=== PATIENT | male | born 1985 | race Caucasian/White ===

== ENCOUNTER 2016-05-12 12:35 | Outpatient (RCR) | payer MEDICAID ==
[2016-05-08] MEDS: DAPTOMYCIN IV SCH (13:15)
[2016-05-08] MEDS: NORMAL SALINE IV SCH (13:15)
[2016-05-08] MEDS: CATHETER FLUSH 10 ML SYR IV PRN ×2 (13:50→14:20)
[2016-05-08 14:32] VITALS: BP 105/70
[2016-05-09] MEDS: CATHETER FLUSH 10 ML SYR IV PRN ×2 (13:28→14:01)
[2016-05-09] MEDS: DAPTOMYCIN IV SCH (13:30)
[2016-05-09] MEDS: NORMAL SALINE IV SCH (13:30)
[2016-05-09 14:05] VITALS: BP 107/74
[2016-05-10 13:27] VITALS: BP 112/56
[2016-05-10] MEDS: DAPTOMYCIN IV SCH (13:33)
[2016-05-10] MEDS: NORMAL SALINE IV SCH (13:33)
[2016-05-10] MEDS: CATHETER FLUSH 10 ML SYR IV PRN (13:33)
[2016-05-11 12:55] VITALS: BP 112/59
[2016-05-11] MEDS: NORMAL SALINE IV SCH (13:13)
[2016-05-11] MEDS: DAPTOMYCIN IV SCH (13:13)
[2016-05-11 13:16] VITALS: BP 112/59
[~2016-05-12] VITALS: Ht 172.7 cm; Wt 68.6 kg
[~2016-05-12 12:35] MED LIST: ACYC-109 PO; BISM262T13 PO; BUTA-234 PO; BUTA1TAB55 PO; CEPH-38 PO; CEPH500C PO; CHLO500T4 PO; CYCL10TA9 PO; DCS100C PO; DICL75TA2 PO; DOXE50CA3 PO; EPIN0.3P3 IM; HC2.5C30 TOP; HYDR-2890 PO; HYDR-3720 PO; HYDR1TAB PO; IBP800T PO; INSU100I14 SQ; INSU100I16 SQ; INSU100V13 IJ; INSU100V16 SC; INSU100V6 SQ; KETO10TA PO; LEVE1U SQ; METF500T4 PO; METR500T PO; MTF500T PO; NAPR-243 PO; NAPR-248 PO; NAPR550T PO; OMEP-10 PO; ONDAN4ODT PO; OXYC-272 PO; PNT40TEC PO; PRD20T PO; PRM25T PO; SULF1TAB35 PO; SULF1TAB38 PO; SUMA100T2 PO; TAMS0.4C98 PO; TETR500C2 PO
[2016-05-12] MEDS: NORMAL SALINE IV SCH (13:25)
[2016-05-12] MEDS: CATHETER FLUSH 10 ML SYR IV PRN ×2 (13:25→13:55)
[2016-05-12] MEDS: DAPTOMYCIN IV SCH (13:25)
[2016-05-12 13:27] LABS: BASOPHILS # (AUTO) 0.1 10^3/uL (0.0-0.1); BASOPHILS % (AUTO) 1 % (0-10); EOSINOPHILS # (AUTO) 0.1 10^3/uL (0.0-0.3); EOSINOPHILS % (AUTO) 1 % (0-10); LYMPHOCYTES # (AUTO) 1.9 X 10^3 (1.0-4.0); LYMPHOCYTES % (AUTO) 26 % (12-44); MEAN CORPUSCULAR HEMOGLOBIN 30 PG (25-34); MEAN CORPUSCULAR HGB CONC 31 G/DL (32-36); MEAN CORPUSCULAR VOLUME 97 FL (80-99); MEAN PLATELET VOLUME 8.5 FL (7.4-10.4); MONOCYTES # (AUTO) 0.7 X 10^3 (0.0-1.0); MONOCYTES % (AUTO) 10 % (0-12); NEUTROPHILS # (AUTO) 4.6 X 10^3 (1.8-7.8); NEUTROPHILS % (AUTO) 63 % (42-75); PLATELET COUNT 846 10^3/uL (130-400); RED BLOOD COUNT 3.17 10^6/uL (4.35-5.85); RED CELL DISTRIBUTION WIDTH 14.2 % (10.0-14.5); WHITE BLOOD COUNT 7.2 10^3/uL (4.3-11.0)
[2016-05-12 13:47] LABS: ALANINE AMINOTRANSFERASE 29 U/L (0-55); ALBUMIN 3.5 G/DL (3.2-4.5); ANION GAP 6 MMOL/L (5-14); ASPARTATE AMINO TRANSFERASE 30 U/L (5-34); BILIRUBIN,TOTAL 0.3 MG/DL (0.1-1.0); BLOOD UREA NITROGEN 6 MG/DL (7-18); BUN/CREATININE RATIO 8; CALCIUM 9.7 MG/DL (8.5-10.1); CARBON DIOXIDE 30 MMOL/L (21-32); CHLORIDE 100 MMOL/L (98-107); CREATINE KINASE 151 U/L (30-200); CREATININE SERUM 0.79 MG/DL (0.60-1.30); ERYTHROCYTE SEDIMENTATION RATE 119 MM/HR (0-15); GFR ESTIMATED > 60; GLUCOSE 197 MG/DL (70-105); POTASSIUM 4.6 MMOL/L (3.6-5.0); SODIUM 136 MMOL/L (135-145); TOTAL PROTEIN 6.8 G/DL (6.4-8.2)
[2016-05-12 14:05] VITALS: BP 117/76
[2016-05-23] MEDS ORDERED: HYDR-3816 PO (03:37)
== END 2016-08-06 | disposition home or self-care (01) ==
LOC: SDC 12:35
PROVIDERS: ATTEND Internal Medicine Infectious Disease
DX: S21.30 Unspecified open wound of front wall of thorax with penetration into thoracic cavity (principal); B95.8 Unspecified staphylococcus as the cause of diseases classified elsewhere; X93.XXXD Assault by handgun discharge, subsequent encounter; Y99.8 Other external cause status
CPT/HCPCS: 36415; 80053; 82550; 85025; 85652; 96365

== ENCOUNTER 2017-05-08 12:41 | Emergency (ER) | payer SELFPAY ==
[~2017-05-08] VITALS: Ht 172.7 cm; Wt 59.0 kg
[~2017-05-08 12:41] MED LIST changes: +HYDR-3816 PO
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
[2017-05-08 14:10] LABS: BASOPHILS % (AUTO) 0 % (0-10); EOSINOPHILS # (AUTO) 0.2 10^3/uL (0.0-0.3); EOSINOPHILS % (AUTO) 2 % (0-10); LYMPHOCYTES # (AUTO) 3.2 X 10^3 (1.0-4.0); LYMPHOCYTES % (AUTO) 39 % (12-44); MEAN CORPUSCULAR HEMOGLOBIN 32 PG (25-34); MEAN CORPUSCULAR HGB CONC 35 G/DL (32-36); MEAN CORPUSCULAR VOLUME 92 FL (80-99); MEAN PLATELET VOLUME 9.6 FL (7.4-10.4); MONOCYTES # (AUTO) 0.5 X 10^3 (0.0-1.0); MONOCYTES % (AUTO) 6 % (0-12); NEUTROPHILS # (AUTO) 4.3 X 10^3 (1.8-7.8); NEUTROPHILS % (AUTO) 53 % (42-75); PLATELET COUNT 238 10^3/uL (130-400); RED BLOOD COUNT 4.77 10^6/uL (4.35-5.85); RED CELL DISTRIBUTION WIDTH 12.2 % (10.0-14.5); WHITE BLOOD COUNT 8.2 10^3/uL (4.3-11.0)
[2017-05-08] MEDS ORDERED: NS 100 ML (IVPB) BAG IV ONE (14:15)
[2017-05-08] MEDS ORDERED: IOHEXOL 350 MG/ML 100 ML (OMNIPAQUE 350) VIAL IV ONE (14:15)
[2017-05-08 14:32] LABS: ALANINE AMINOTRANSFERASE 25 U/L (0-55); ALBUMIN 4.1 GM/DL (3.2-4.5); ANION GAP 9 MMOL/L (5-14); ASPARTATE AMINO TRANSFERASE 20 U/L (5-34); BILIRUBIN,TOTAL 0.4 MG/DL (0.1-1.0); BLOOD UREA NITROGEN 10 MG/DL (7-18); BUN/CREATININE RATIO 12; CALCIUM 8.9 MG/DL (8.5-10.1); CARBON DIOXIDE 24 MMOL/L (21-32); CHLORIDE 106 MMOL/L (98-107); CREATININE SERUM 0.84 MG/DL (0.60-1.30); GFR ESTIMATED > 60; GLUCOSE 135 MG/DL (70-105); LIPASE 29 U/L (8-78); SODIUM 139 MMOL/L (135-145); TOTAL PROTEIN 6.9 GM/DL (6.4-8.2)
--- NOTE | 2017-05-08 15:26 | Diagnostic Imaging Report ---
PROCEDURE: CT chest and abdomen with contrast. TECHNIQUE: Multiple contiguous axial images were obtained through the chest and abdomen after the administration of intravenous contrast. DATE: May 08, 2017. INDICATION: 31-year-old male, painful lump in the region of the left axilla for one year. Right upper quadrant abdominal pain. COMPARISON: CT chest and abdomen with contrast May 23, 2016. FINDINGS: There is mild dependent atelectasis. There is no additional focal airspace consolidation. There is no identified pulmonary nodule. There is no pneumothorax. There is no pleural effusion. The more central airways are patent. There is no identified pulmonary embolus. The main pulmonary artery is normal in caliber. The heart is not enlarged. There is no pericardial effusion. There is no identified mediastinal, hilar, or axillary lymph node which specifically meets CT size criteria for adenopathy. In the left axilla, there is a low-attenuation mass not entirely included in the [id number] which measures 3.1 x 1.8 cm in axial dimension and at least 3.3 cm in craniocaudal extent. This does extend to the skin surface. This is a new finding since comparison CT chest of May 23, 2016. There is incidental note of direct origin of the left vertebral artery off the aortic arch. The liver is normal in size and contour. There is a low-attenuation lesion in the dome of the liver on axial image 40 which measures 9 mm in size. Internal attenuation is measured at 9 Hounsfield units. This is significantly decreased in size since comparison CT of May 23, 2016. The additional previously noted low-attenuation lesion in the upper aspect of the right lobe of the liver on prior axial image 45 is also significantly decreased in size and currently measures 2.8 x 1.0 cm in axial extent. This previously measured approximately 7.7 x 3.9 cm in size. The outer liver contours are not grossly nodular. The main, right, and left portal veins are patent. The gallbladder is unremarkable. There is no intrahepatic or extrahepatic bile duct dilation. The main pancreatic duct is not abnormally dilated. The pancreatic parenchyma is unremarkable. There is an accessory splenule on axial image 54. The spleen is normal in size. The adrenal glands are unremarkable. There is a 3 mm nonobstructing right renal stone on axial image 60. The visualized portions of the urinary collecting systems are not distended. The visualized portions of the intestinal tract are not distended. There is no free intraperitoneal air. There is no identified drainable fluid collection within the abdomen. There is no identified free fluid. There are mildly prominent left retroperitoneal lymph nodes which do appear to have fatty leila. One of the largest is on axial image 66 measuring 10 mm in short axis. This is unchanged since comparison exam. There are somewhat prominent atherosclerotic changes for patient age. There is no identified acute bony abnormality. There are chronic appearing right rib deformities. IMPRESSION: 1. New low-attenuation mass in the subcutaneous tissues in the region of the left axilla anterior to the left proximal humerus abutting the skin surface, incompletely imaged in entire extent measuring at least 3.1 x 1.8 x 3.3 cm in size. This does extend to the skin surface. Recommend correlation with dermatologic exam. This is nonspecific in appearance. Benign and malignant neoplasms and abscess would be included in the differential diagnosis. This is new since May 23, 2016. Correlation clinically and biopsy as needed recommended. 2. Low attenuation lesions in the dome of the liver which are decreased in size since May 23, 2016. The interval decrease in size is not typical for hepatic cysts. This could relate to interval decrease in size of prior fluid collections. Interval decreased size of hepatic abscesses or other cystic liver mass would be considered in the differential diagnosis. Cystic malignancy is considered less likely, particularly if there are no interval treatment-related changes. Correlation with history recommended. Dictated by: Dictated on workstation # [id number]
[2017-05-08] MEDS ORDERED: HYDR-757 PO (15:33)
[2017-05-08 15:39] VITALS: BP 110/70
== END 2017-05-08 15:39 | disposition home or self-care (01) ==
LOC: EDUNIT# 12:41 → ER 12:44
DX: R59.0 Localized enlarged lymph nodes (principal); E11.9 Type 2 diabetes mellitus without complications; F17.210 Nicotine dependence, cigarettes, uncomplicated; Z87.442 Personal history of urinary calculi; Z98.52 Vasectomy status; Z87.828 Personal history of other (healed) physical injury and trauma
CPT/HCPCS: 36415; 71260; 74160; 80053; 83690; 85025

== ENCOUNTER 2017-06-19 13:02 | Emergency (ER) | payer SELFPAY ==
[~2017-06-19 13:02] MED LIST changes: +HYDR-757 PO
--- OUTSIDE RECORDS SUMMARY | 2017-06-19 13:09 | XMS REPORT ---
Author Author ANTOINETTE KINCAID Organization [employer] Address Unknown Phone Unavailable Care Team Providers Care Cardroom Manager Name Role Phone ANTOINETTE KINCAID CP Unavailable Allergies No Known Allergies Problems Problem Type Condition Code Onset Dates Condition Status Problem Impulse control disorder, unspecified 312.30 Active Problem Diarrhea 787.91 Active Problem Nausea alone 787.02 Active Problem Diabetes type 2, uncontrolled E11.65 Active Problem 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 Problem Severe episode of recurrent major depressive disorder, without psychotic features F33.2 Active Problem Unspecified concussion 850.9 Active Problem Acute pharyngitis 462 Active Problem Other specified disease of hair and hair follicles 704.8 Active Problem Other specified sites of sprains and strains 848.8 Active Problem Other specified contraceptive management V25.8 Active Problem Other malaise and fatigue 780.79 Active Problem Need for prophylactic vaccination and inoculation, Influenza V04.81 Active Problem Headache 784.0 Active Problem Migraine, unspecified without mention of intractable migraine without mention of status migrainosus 346.90 Active Problem Idiopathic urticaria 708.1 Active Problem Influenza with other respiratory manifestations 487.1 Active Problem Diabetes mellitus without mention of complication, type II or unspecified type, uncontrolled 250.02 Active Problem Cough 786.2 Active Problem Counseling for marital and partner problems, unspecified V61.10 Active Medications No Known Medications Results No Known Results Summary Purpose [employer] Submission
--- OUTSIDE RECORDS SUMMARY | 2017-06-19 13:09 | XMS REPORT ---
Author MIGUELITO Pandey [facility] [employer] Address Unknown Phone Unavailable Care Team Providers Care Stummel Selector Name Role Phone MIGUELITO ZULETA CP Unavailable Allergies, Adverse Reactions, Alerts Substance Reaction Event Type Penicillin V Potassium Info Not Available Drug Allergy Chantix suicidal ideations Drug Allergy Problems Problem Type Condition Code Onset Dates Condition Status Problem Counseling for marital and partner problems, unspecified V61.10 Active Problem Nausea alone 787.02 Active Problem Impulse control disorder, unspecified 312.30 Active Problem 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 Assessment PTSD (post-traumatic stress disorder) F43.10 Active Problem Other specified disease of hair and hair follicles 704.8 Active Assessment Major depression F32.9 Active Assessment Unspecified mood [affective] disorder F39 Active Problem Diabetes type 2, uncontrolled E11.65 Active Problem Acute pharyngitis 462 Active Problem Diarrhea 787.91 Active Problem Other specified sites of sprains and strains 848.8 Active Problem Unspecified concussion 850.9 Active Problem Headache 784.0 Active Problem Other specified contraceptive management V25.8 Active Assessment ADHD (attention deficit hyperactivity disorder), inattentive type F90.0 Active Problem Need for prophylactic vaccination and inoculation, Influenza V04.81 Active Problem Cough 786.2 Active Problem Migraine, unspecified without mention of intractable migraine without mention of status migrainosus 346.90 Active Problem Other malaise and fatigue 780.79 Active Problem Idiopathic urticaria 708.1 Active Problem Influenza with other respiratory manifestations 487.1 Active Problem Diabetes mellitus without mention of complication, type II or unspecified type, uncontrolled 250.02 Active Medications Medication Code System Code Instructions Start Date End Date Status Dosage Klonopin [facility] [address]-68 1 MG Orally as needed once a day Jun 08, 2015 1 tablet NovoLog Flexpen [facility] [address]-10 100 unit/mL Aug 14, 2014 inject 20 Units by Subcutaneous route before meals 3 times per day metformin NDC 0 500 mg Aug 14, 2014 take 1 tablet by Oral route 2 times per day with morning and evening meals for diabetes Lantus AlainaoStar [facility] [address]-27 100 unit/mL (3 mL) Aug 14, 2014 20 units by Subcutaneous route 1 time per day Trileptal [facility] [address]-01 300 MG Orally twice a day Jun 08, 2015 as directed Procedures Procedure Coding System Code Date Psych diagnostic evaluation w/medical services, new patient CPT-4 64422 Jun 08, 2015 Vital Signs Date/Time: Jun 08, 2015 Cardiac Monitoring Heart Rate 80 bpm Weight 174.2 lbs Height 67 in BMI 27.28 Index Blood Pressure Diastolic 68 mmHg Blood Pressure Systolic 108 mmHg Results No Known Results Summary Purpose [employer] Submission
--- OUTSIDE RECORDS SUMMARY | 2017-06-19 13:09 | XMS REPORT ---
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 [address]-46 75 MG Orally Twice a day Jan 31, 2015 Jan 30, [address] [facility] [address]-30 500 MG Orally 2 times a day Jan 31, 2015 Jan 30, 2016 1 tablet Results No Known Results Summary Purpose [employer] Submission
--- OUTSIDE RECORDS SUMMARY | 2017-06-19 13:09 | XMS REPORT ---
Author Author HENRIQUE CHOPRA Organization [employer] Address Unknown Phone Unavailable Care Team Providers Care Mental Retardation Nurse Name Role Phone HENRIQUE CHOPRA CP Unavailable Allergies No Known Allergies Problems Problem Type Condition Code Onset Dates Condition Status Problem Impulse control disorder, unspecified 312.30 Active Problem Diarrhea 787.91 Active Problem Nausea alone 787.02 Active Problem Diabetes type 2, uncontrolled E11.65 Active Assessment Severe episode of recurrent major depressive disorder, without psychotic features F33.2 Active Problem Psychosexual dysfunction with inhibited sexual [...] unspecified V61.10 Active Medications No Known Medications Procedures Procedure Coding System Code Date Psychotherapy, patient &/family, 30 minutes, established patient CPT-4 74508 May 13, 2016 Results No Known Results Summary Purpose [employer] Submission
--- OUTSIDE RECORDS SUMMARY | 2017-06-19 13:10 | XMS REPORT ---
Author ANTOINETTE Hess [facility] [employer] Address Unknown Phone Unavailable Care Team Providers Care Experimental Flight Test Mechanic Name Role Phone ANTOINETTE KINCAID CP Unavailable Allergies, Adverse Reactions, Alerts Substance [...] Other specified contraceptive management V25.8 Active Assessment Diabetes type 2, uncontrolled E11.65 Active Problem Need for prophylactic vaccination and [...] Start Date End Date Status Dosage Klonopin [facility] [address]-71 1 MG Orally as needed once a day Jun 08, 2015 1 tablet Lantus SoloStar [facility] [address]-90 100 unit/mL (3 mL) Aug 14, 2014 20 units by Subcutaneous route 1 time per day Trileptal [facility] [address]-38 300 MG Orally twice a day Jun 08, 2015 as directed NovoLog Flexpen [facility] [address]-58 100 UNIT/ML 3 times a day Aug 14, 2014 inject 20 units metformin NDC 0 500 mg Aug 14, 2014 take 1 tablet by Oral route 2 times per day with morning and evening meals for diabetes Procedures Procedure Coding System Code Date Office Visit, Est Pt., Level 3 CPT-4 38314 Aug 01, 2015 GLYCATED HEMOGLOBIN TEST CPT-4 82861 Aug 01, 2015 Vital Signs Date/Time: Aug 01, 2015 Temperature 98.4 F Weight 177.1 lbs Height 67 in BMI 27.73 Index Blood Pressure Diastolic 70 mmHg Blood Pressure Systolic 108 mmHg Cardiac Monitoring Heart Rate 86 bpm Results No Known Results Summary Purpose [employer] Submission
--- OUTSIDE RECORDS SUMMARY | 2017-06-19 13:10 | XMS REPORT ---
Author Author HENRIQUE CHOPRA Organization [facility] Address [address] [place] [address] Care Team Providers Care Integration Software Engineer Name Role Phone HENRIQUE CHOPRA Unavailable PROBLEMS Type Condition ICD9-CM Code [id number] Code Onset Dates Condition Status SNOMED Code Problem Nausea alone 787.02 Active 272806935 Problem Acute pharyngitis 462 Active 654048679 Problem Diarrhea 787.91 Active 49652864 Problem Severe episode of recurrent major depressive disorder, without psychotic features F33.2 Active 95379385 Problem Need for prophylactic vaccination and inoculation, Influenza V04.81 Active 810046897 Problem Diabetes type 2, uncontrolled E11.65 Active 837988929 Problem Other specified sites of sprains and strains 848.8 Active 252435829 Problem Unspecified concussion 850.9 Active 728322940 Problem 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 084944358512004 Problem Other specified disease of hair and hair follicles 704.8 Active 895370939 Problem Other malaise and fatigue 780.79 Active 904930239 Problem Influenza with other respiratory manifestations 487.1 Active 6845052 Problem Headache 784.0 Active 83211385 Problem Other specified contraceptive management V25.8 Active 952549474 Problem Idiopathic urticaria 708.1 Active 37830126 Problem Diabetes mellitus without mention of complication, type II or unspecified type, uncontrolled 250.02 Active 570430573 Problem Cough 786.2 Active 42757190 Problem Counseling for marital and partner problems, unspecified V61.10 Active 87193311 Problem Migraine, unspecified without mention of intractable migraine without mention of status migrainosus 346.90 Active 36419002 Problem Impulse control disorder, unspecified 312.30 Active 38777291 ALLERGIES Unknown Allergies SOCIAL HISTORY No smoking Hx information available PLAN OF CARE VITAL SIGNS MEDICATIONS Unknown Medications RESULTS No Results PROCEDURES No Known procedures IMMUNIZATIONS No Known Immunizations
--- OUTSIDE RECORDS SUMMARY | 2017-06-19 13:11 | XMS REPORT ---
Author MIGUELITO Pandey Organization [employer] Address Unknown Phone Unavailable Care Team Providers Care Engineer Name Role Phone MIGUELITO ZULETA CP Unavailable Allergies No Known Allergies Problems [...] Instructions Start Date End Date Status Dosage Trileptal [facility] [address]-60 300 MG Orally twice a day Jun 08, 2015 as directed Results No Known Results Summary Purpose [employer] Submission
--- OUTSIDE RECORDS SUMMARY | 2017-06-19 13:11 | XMS REPORT ---
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 Assessment Generalized anxiety disorder F41.1 Active Problem Other specified disease of hair and hair follicles 704.8 Active Assessment ADHD (attention deficit hyperactivity disorder), inattentive type F90.0 Active Problem Diabetes type 2, uncontrolled E11.65 Active Problem Acute pharyngitis 462 Active Problem Diarrhea 787.91 Active Problem Other specified sites of sprains and strains 848.8 Active Problem Unspecified concussion 850.9 Active Problem Headache 784.0 Active Problem Other specified contraceptive management V25.8 Active Assessment Impulse control disorder, unspecified 312.30 Active Problem Need for prophylactic vaccination and [...] or unspecified type, uncontrolled 250.02 Active Medications No Known Medications Procedures Procedure Coding System Code Date Psychotherapy, patient &/family, 45 minutes, established patient CPT-4 40924 May 29, 2015 Results No Known Results Summary Purpose [employer] Submission
--- OUTSIDE RECORDS SUMMARY | 2017-06-19 13:11 | XMS REPORT ---
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 Role Phone HOWARD COLLINS CP Unavailable Allergies No Known Allergies Problems Problem Type Condition Code Onset Dates Condition Status Problem Idiopathic urticaria 708.1 Active Assessment Acute stress reaction F43.0 Active Problem Diabetes mellitus without mention of complication, type II or unspecified type, uncontrolled 250.02 Active Assessment Panic disorder [episodic paroxysmal anxiety] without agoraphobia F41.0 Active Problem Counseling for marital and partner problems, unspecified V61.10 Active Problem Nausea alone 787.02 Active Problem Impulse control disorder, unspecified 312.30 Active Problem 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 Problem Other specified disease of hair and hair follicles 704.8 Active Assessment Counseling for marital and partner problems, unspecified V61.10 Active Assessment Generalized anxiety disorder F41.1 Active Problem Diabetes type 2, uncontrolled E11.65 Active Assessment PTSD (post-traumatic stress disorder) F43.10 Active Problem Acute pharyngitis 462 Active Problem [...] Other malaise and fatigue 780.79 Active Problem Influenza with other respiratory manifestations 487.1 Active Medications No Known Medications Procedures Procedure Coding System Code Date Psychotherapy, patient &/family, 45 minutes, established patient CPT-4 69968 May 07, 2015 Results No Known Results Summary Purpose [employer]Works Submission
--- OUTSIDE RECORDS SUMMARY | 2017-06-19 13:11 | XMS REPORT ---
Author ANTOINETTE Hess [facility] eClinicalWorks Address Unknown Phone Unavailable Care Team Providers Care [place] Hand Name Role Phone ANTOINETTE KINCAID CP Unavailable [...] Instructions Start Date End Date Status Dosage metformin NDC 0 500 mg Aug 14, 2014 take 1 tablet by Oral route 2 times per day with morning and evening meals for diabetes Lantus SoloStar [facility] [address]-17 100 unit/mL (3 mL) Aug 14, 2014 20 units by Subcutaneous route 1 time per day NovoLog Flexpen [facility] [address]-66 100 unit/mL Aug 14, 2014 inject 20 Units by Subcutaneous route before meals 3 times per day Diclofenac Sodium [facility] [address]-13 75 MG Orally Twice a day Jan 31, 2015 May 01, 2015 1 tablet Chlorzoxazone [facility] [address]-87 500 MG Orally 2 times a day Jan 31, 2015 May 01, 2015 1 tablet Procedures Procedure Coding System Code Date Office Visit, Est Pt., Level 3 CPT-4 74967 Apr 27, 2015 Vital Signs Date/Time: Apr 27, 2015 Temperature 97.7 F Weight 174.8 lbs Height 67 in BMI 27.37 Index Blood Pressure Diastolic 80 mmHg Blood Pressure Systolic 126 mmHg Cardiac Monitoring Heart Rate 80 bpm Results No Known Results Summary Purpose eClinicalWorks Submission
--- OUTSIDE RECORDS SUMMARY | 2017-06-19 13:11 | XMS REPORT ---
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
--- OUTSIDE RECORDS SUMMARY | 2017-06-19 13:14 | XMS REPORT | Continuity of Care Document ---
Author Author [facility] of [facility] of [facility] Address Unknown Phone Unavailable Allergies Active Description Code Type Severity Reaction Onset Reported/Identified Relationship to Patient Clinical Status Yes Penicillins Drug Allergy 12/05/2008 Yes Penicillins Drug Allergy N/A N/A 12/05/2008 Yes amoxicillin trihydrate [id number] Drug Allergy Mild HIVES 02/09/2011 Yes Penicillins [id number] Drug Allergy Unknown HIVES 02/21/2015 Medications There is no data. Problems Date Dx Coded Attending Type Code Diagnosis Diagnosed By 05/21/1027 WILDA MELVIN MD Ot M54.2 CERVICALGIA 05/21/1027 WILDA MELVIN MD Ot M54.6 PAIN IN THORACIC SPINE 05/21/1699 WILDA MELVIN MD Ot M54.2 CERVICALGIA 05/21/1699 WILDA MELVIN MD Ot M54.6 PAIN IN THORACIC SPINE 03/07/2008 ANTOINETTE KINCAID APRN 780.93 MEMORY LOSS 03/07/2008 ANTOINETTE KINCAID APRN V58.69 MEDICATION HIGH RISK 03/07/2008 ANTOINETTE KINCAID APRN 780.93 MEMORY LOSS 03/07/2008 ANTOINETTE KICNAID APRN V58.69 MEDICATION HIGH RISK 03/07/2008 VARGHESE MALONEY DO 780.93 MEMORY LOSS 03/07/2008 VARGHESE MALONEY DO V58.69 MEDICATION HIGH RISK 03/07/2008 780.93 MEMORY LOSS 03/07/2008 V58.69 MEDICATION HIGH RISK 03/07/2008 780.93 MEMORY LOSS 03/07/2008 V58.69 MEDICATION HIGH RISK 03/07/2008 780.93 MEMORY LOSS 03/07/2008 V58.69 MEDICATION HIGH RISK 03/07/2008 780.93 MEMORY LOSS 03/07/2008 V58.69 MEDICATION HIGH RISK 03/07/2008 ANTOINETTE KINCAID APRN 780.93 MEMORY LOSS 03/07/2008 ANTOINETTE KINCAID APRN V58.69 MEDICATION HIGH RISK 03/07/2008 ANGELICA BOARDER MACHINE, DALTON S 780.93 MEMORY LOSS 03/07/2008 ANGELICA VERONICA DALTON S V58.69 MEDICATION HIGH RISK 03/07/2008 CHARISMA GRACE MD 780.93 MEMORY LOSS 03/07/2008 CHARISMA GRACE MD V58.69 MEDICATION HIGH RISK 03/07/2008 ANTOINETTE KINCAID APRN 780.93 MEMORY LOSS 03/07/2008 ANTOINETTE KINCAID APRN V58.69 MEDICATION HIGH RISK 03/07/2008 ANTOINETTE KINCAID APRN 780.93 MEMORY LOSS 03/07/2008 ANTOINETTE KINCAID APRN V58.69 MEDICATION HIGH RISK 03/07/2008 MALONEY DO, VARGHESE K 780.93 MEMORY LOSS 03/07/2008 MALONEY DO, VARGHESE K V58.69 MEDICATION HIGH RISK 03/07/2008 APRIL BREWER, ROSE N 780.93 MEMORY LOSS 03/07/2008 APRIL BREWER, ROSE N V58.69 MEDICATION HIGH RISK 03/07/2008 MALONEY DO, VARGHESE K 780.93 MEMORY LOSS 03/07/2008 MALONEY DO, VARGHESE K V58.69 MEDICATION HIGH RISK 03/07/2008 MALONEY DO, VARGHESE K 780.93 MEMORY LOSS 03/07/2008 MALONEY DO, VARGHESE K V58.69 MEDICATION HIGH RISK 03/07/2008 GIBRAN VERONICA CRYSTAL L 780.93 MEMORY LOSS 03/07/2008 STEWTahir BOARDER MACHINE, CRYSTAL L V58.69 MEDICATION HIGH RISK 07/28/2008 ANTOINETTE KINCAID APRN 300.00 AN ANXIETY UNSPEC 07/28/2008 ANTOINETTE KINCAID APRN 307.47 SI DYSSOMNIA NOS 07/28/2008 ANTOINETTE KINCAID APRN 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 07/28/2008 ANTOINETTE KINCAID APRN 300.00 AN ANXIETY UNSPEC 07/28/2008 ANTOINETTE KINCAID APRN 307.47 SI DYSSOMNIA NOS 07/28/2008 ANTOINETTE KINCAID APRN 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 07/28/2008 VARGHESE MALONEY DO 300.00 AN ANXIETY UNSPEC 07/28/2008 VARGHESE MALONEY DO K 307.47 SI DYSSOMNIA NOS 07/28/2008 VARGHESE MALONEY DO 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 07/28/2008 300.00 AN ANXIETY UNSPEC 07/28/2008 307.47 SI DYSSOMNIA NOS 07/28/2008 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 07/28/2008 300.00 AN ANXIETY UNSPEC 07/28/2008 307.47 SI DYSSOMNIA NOS 07/28/2008 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 07/28/2008 300.00 AN ANXIETY UNSPEC 07/28/2008 307.47 SI DYSSOMNIA NOS 07/28/2008 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 07/28/2008 300.00 AN ANXIETY UNSPEC 07/28/2008 307.47 SI DYSSOMNIA NOS 07/28/2008 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 07/28/2008 ANTOINETTE KINCAID APRN 300.00 AN ANXIETY UNSPEC 07/28/2008 ANTOINETTE KINCAID APRN 307.47 SI DYSSOMNIA NOS 07/28/2008 ANTOINETTE KINCAID APRN 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 07/28/2008 DALTON DOMINGUEZ APRN 300.00 AN ANXIETY UNSPEC 07/28/2008 DALTON DOMINGUEZ APRN 307.47 SI DYSSOMNIA NOS 07/28/2008 DALTON DOMINGUEZ APRN S 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 07/28/2008 CHARISMA GRACE MD 300.00 AN ANXIETY UNSPEC 07/28/2008 CHARISMA GRACE MD 307.47 SI DYSSOMNIA NOS 07/28/2008 CAHRISMA GRACE MD 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 07/28/2008 ANTOINETTE KINCAID APRN 300.00 AN ANXIETY UNSPEC 07/28/2008 ANTOINETTE KINCAID APRN 307.47 SI DYSSOMNIA NOS 07/28/2008 ANTOINETTE KINCAID APRN 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 07/28/2008 ANTOINETTE KINCAID APRN 300.00 AN ANXIETY UNSPEC 07/28/2008 ANTOINETTE KINCAID APRN 307.47 SI DYSSOMNIA NOS 07/28/2008 ANTOINETTE KINCAID APRN 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 07/28/2008 VARGHESE MALONEY DO 300.00 AN ANXIETY UNSPEC 07/28/2008 VARGHESE MALONEY DO K 307.47 SI DYSSOMNIA NOS 07/28/2008 TG MALONEY DOA K 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 07/28/2008 ROSE CHEN MD 300.00 AN ANXIETY UNSPEC 07/28/2008 ROSE CHEN MD 307.47 SI DYSSOMNIA NOS 07/28/2008 ROSE CHEN MD 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 07/28/2008 HAIDER MARTINO VARGHESE K 300.00 AN ANXIETY UNSPEC 07/28/2008 HAIDER MARTINO VARGHESE K 307.47 SI DYSSOMNIA NOS 07/28/2008 HAIDER MARTINO, VARGHESE K 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 07/28/2008 HAIDER MARTINO VARGHESE K 300.00 AN ANXIETY UNSPEC 07/28/2008 HAIDER MARTINO VARGHESE K 307.47 SI DYSSOMNIA NOS 07/28/2008 TG MALONEY DOA K 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 07/28/2008 MADL BOARDER MACHINE, CRYSTAL L 300.00 AN ANXIETY UNSPEC 07/28/2008 MADL BOARDER MACHINE, CRYSTAL L 307.47 SI DYSSOMNIA NOS 07/28/2008 MADL BOARDER MACHINE, CRYSTAL L 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 12/05/2008 ANTOINETTE KINCAID APRN 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 12/05/2008 ANTOINETTE KINCAID APRN 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 12/05/2008 VARGHESE MALONEY DO K 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 12/05/2008 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 12/05/2008 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 12/05/2008 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 12/05/2008 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 12/05/2008 ANTOINETTE KINCAID APRN 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 12/05/2008 DALTON DOMINGUEZ APRN 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 12/05/2008 CHARISMA GRACE MD 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 12/05/2008 ANTOINETTE KINCAID APRN 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 12/05/2008 ANTOINETTE KINCAID APRN 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 12/05/2008 MALONEY DO, VARGHESE K 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 12/05/2008 ROSE CHEN MD 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 12/05/2008 MALONEY DO, VARGHESE K 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 12/05/2008 MALONEY DO, VARGHESE K 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 12/05/2008 CRYSTAL LEARY APRN L 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 12/18/2008 ANTOINETTE KINCAID APRN 270.7 Hyperglycemia 12/18/2008 ANTOINETTE KINCAID APRN 270.7 Hyperglycemia 12/18/2008 MALONEY DO, VARGHESE K 270.7 Hyperglycemia 12/18/2008 270.7 Hyperglycemia 12/18/2008 270.7 Hyperglycemia 12/18/2008 270.7 Hyperglycemia 12/18/2008 270.7 Hyperglycemia 12/18/2008 ANTOINETTE KINCAID APRN 270.7 Hyperglycemia 12/18/2008 DALTON DOMINGUEZ APRN 270.7 Hyperglycemia 12/18/2008 CHARISMA GRACE MD 270.7 Hyperglycemia 12/18/2008 ANTOINETTE KINCAID APRN 270.7 Hyperglycemia 12/18/2008 ANTOINETTE KINCAID APRN 270.7 Hyperglycemia 12/18/2008 MALONEY DO, VARGHESE K 270.7 Hyperglycemia 12/18/2008 ROSE CHEN MD 270.7 Hyperglycemia 12/18/2008 MALONEY DO, VARGHESE K 270.7 Hyperglycemia 12/18/2008 MALONEY DO, VARGHESE K 270.7 Hyperglycemia 12/18/2008 CRYSTAL LEARY APRN L 270.7 Hyperglycemia 01/26/2009 ANTOINETTE KINCAID APRN 894.0 OPEN WOUND OF LOWER EXTREMITY 01/26/2009 ANTOINETTE KINCAID APRN 894.0 OPEN WOUND OF LOWER EXTREMITY 01/26/2009 MALONEY DO, VARGHESE K 894.0 OPEN WOUND OF LOWER EXTREMITY 01/26/2009 894.0 OPEN WOUND OF LOWER EXTREMITY 01/26/2009 894.0 OPEN WOUND OF LOWER EXTREMITY 01/26/2009 894.0 OPEN WOUND OF LOWER EXTREMITY 01/26/2009 894.0 OPEN WOUND OF LOWER EXTREMITY 01/26/2009 ANTOINETTE KINCAID APRN 894.0 OPEN WOUND OF LOWER EXTREMITY 01/26/2009 ANGELICA VERONICA DALTON S 894.0 OPEN WOUND OF LOWER EXTREMITY 01/26/2009 CHARISMA GRACE MD 894.0 OPEN WOUND OF LOWER EXTREMITY 01/26/2009 ANTOINETTE KINCAID APRN 894.0 OPEN WOUND OF LOWER EXTREMITY 01/26/2009 ANTOINETTE KINCAID APRN 894.0 OPEN WOUND OF LOWER EXTREMITY 01/26/2009 MALONEY DO, VARGHESE K 894.0 OPEN WOUND OF LOWER EXTREMITY 01/26/2009 ROSE CHEN MD 894.0 OPEN WOUND OF LOWER EXTREMITY 01/26/2009 MALONEY DO, VARGHESE K 894.0 OPEN WOUND OF LOWER EXTREMITY 01/26/2009 MALONEY DO, VARGHESE K 894.0 OPEN WOUND OF LOWER EXTREMITY 01/26/2009 CRYSTAL LEARY APRN L 894.0 OPEN WOUND OF LOWER EXTREMITY 02/12/2009 ANTOINETTE KINCAID APRN 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 02/12/2009 ANTOINETTE KINCAID APRN 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 02/12/2009 MALONEY DO, VARGHESE K 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 02/12/2009 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 02/12/2009 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 02/12/2009 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 02/12/2009 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 02/12/2009 ANTOINETTE KINCAID APRN 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 02/12/2009 DALTON DOMINGUEZ APRN S 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 02/12/2009 CHARISMA GRACE MD 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 02/12/2009 ANTOINETTE KINCAID APRN 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 02/12/2009 ANTOINETTE KINCAID APRN 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 02/12/2009 MALONEY DO, VARGHESE K 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 02/12/2009 ROSE CHEN MD 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 02/12/2009 MALONEY DO, VARGHESE K 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 02/12/2009 MALONEY DO, VARGHESE K 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 02/12/2009 SHREYA LEARY APRNA L 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 05/01/2009 ANTOINETTE KINCAID APRN 305.1 NICOTINE DEPENDENCE 05/01/2009 ANTOINETTE KINCAID APRN 305.1 NICOTINE DEPENDENCE 05/01/2009 MALONEY TG MARTINOA K 305.1 NICOTINE DEPENDENCE 05/01/2009 305.1 NICOTINE DEPENDENCE 05/01/2009 305.1 NICOTINE DEPENDENCE 05/01/2009 305.1 NICOTINE DEPENDENCE 05/01/2009 305.1 NICOTINE DEPENDENCE 05/01/2009 ANTOINETTE KINCAID APRN 305.1 NICOTINE DEPENDENCE 05/01/2009 DALTON DOMINGUEZ APRN 305.1 NICOTINE DEPENDENCE 05/01/2009 CHARISMA GRACE MD 305.1 NICOTINE DEPENDENCE 05/01/2009 ANTOINETTE KINCAID APRN 305.1 NICOTINE DEPENDENCE 05/01/2009 ANTOINETTE KINCAID APRN T 305.1 NICOTINE DEPENDENCE 05/01/2009 MALONEY DO VARGHESE K 305.1 NICOTINE DEPENDENCE 05/01/2009 ROSE CHEN MD 305.1 NICOTINE DEPENDENCE 05/01/2009 HAIDER MARTINO VARGHESE K 305.1 NICOTINE DEPENDENCE 05/01/2009 HAIDER MARTINO VARGHESE K 305.1 NICOTINE DEPENDENCE 05/01/2009 CRYSTAL LEARY APRN 305.1 NICOTINE DEPENDENCE 08/06/2009 ANTOINETTE KINCAID APRN 535.50 Gastritis Unspec 08/06/2009 ANTOINETTE KINCAID APRN 535.50 Gastritis Unspec 08/06/2009 TG MALONEY DOA K 535.50 Gastritis Unspec 08/06/2009 535.50 Gastritis Unspec 08/06/2009 535.50 Gastritis Unspec 08/06/2009 535.50 Gastritis Unspec 08/06/2009 535.50 Gastritis Unspec 08/06/2009 ANTOINETTE KINCAID APRN 535.50 Gastritis Unspec 08/06/2009 DALTON DOMINGUEZ APRN 535.50 Gastritis Unspec 08/06/2009 CHARISMA GRACE MD 535.50 Gastritis Unspec 08/06/2009 ANTOINETTE KINCAID APRN 535.50 Gastritis Unspec 08/06/2009 ANTOINETTE KINCAID APRN 535.50 Gastritis Unspec 08/06/2009 HAIDER MARTINO VARGHESE K 535.50 Gastritis Unspec 08/06/2009 ROSE CHEN MD 535.50 Gastritis Unspec 08/06/2009 HAIDER MARTINO VARGHESE K 535.50 Gastritis Unspec 08/06/2009 HAIDER MARTINO VARGHESE K 535.50 Gastritis Unspec 08/06/2009 CRYSTAL LEARY APRN 535.50 Gastritis Unspec 09/26/2009 ANTOINETTE KINCAID APRN 789.00 ABDOMINAL PAIN UNSPECIFIED SITE 09/26/2009 ANTOINETTE KINCAID APRN 789.00 ABDOMINAL PAIN UNSPECIFIED SITE 09/26/2009 MALONEY DO, VARGHESE K 789.00 ABDOMINAL PAIN UNSPECIFIED SITE 09/26/2009 789.00 ABDOMINAL PAIN UNSPECIFIED SITE 09/26/2009 789.00 ABDOMINAL PAIN UNSPECIFIED SITE 09/26/2009 789.00 ABDOMINAL PAIN UNSPECIFIED SITE 09/26/2009 789.00 ABDOMINAL PAIN UNSPECIFIED SITE 09/26/2009 ANTOINETTE KINCAID APRN 789.00 ABDOMINAL PAIN UNSPECIFIED SITE 09/26/2009 DALTON DOMINGUEZ APRN 789.00 ABDOMINAL PAIN UNSPECIFIED SITE 09/26/2009 CHARISMA GRACE MD 789.00 ABDOMINAL PAIN UNSPECIFIED SITE 09/26/2009 ANTOINETTE KINCAID APRN 789.00 ABDOMINAL PAIN UNSPECIFIED SITE 09/26/2009 ANTOINETTE KINCAID APRN 789.00 ABDOMINAL PAIN UNSPECIFIED SITE 09/26/2009 MALONEY DO VARGHESE K 789.00 ABDOMINAL PAIN UNSPECIFIED SITE 09/26/2009 ROSE CHEN MD 789.00 ABDOMINAL PAIN UNSPECIFIED SITE 09/26/2009 MALONEY DO, VARGHESE K 789.00 ABDOMINAL PAIN UNSPECIFIED SITE 09/26/2009 MALONEY DO, VARGHESE K 789.00 ABDOMINAL PAIN UNSPECIFIED SITE 09/26/2009 GIBRAN VERONICA CRYSTAL Tahir 789.00 ABDOMINAL PAIN UNSPECIFIED SITE 04/26/2010 ANTOINETTE KINCAID APRN 296.90 MO MOOD DIS NOS 04/26/2010 ANTOINETTE KINCAID APRN 309.81 AN PTSD 04/26/2010 ANTOINETTE KINCAID APRN 296.90 MO MOOD DIS NOS 04/26/2010 ANTOINETTE KINCAID APRN 309.81 AN PTSD 04/26/2010 MALONEY DO VARGHESE K 296.90 MO MOOD DIS NOS 04/26/2010 MALONEY DO VARGHESE K 309.81 AN PTSD 04/26/2010 296.90 MO MOOD DIS NOS 04/26/2010 309.81 AN PTSD 04/26/2010 296.90 MO MOOD DIS NOS 04/26/2010 309.81 AN PTSD 04/26/2010 296.90 MO MOOD DIS NOS 04/26/2010 309.81 AN PTSD 04/26/2010 296.90 MO MOOD DIS NOS 04/26/2010 309.81 AN PTSD 04/26/2010 ANTOINETTE KINCAID APRN T 296.90 MO MOOD DIS NOS 04/26/2010 ANTOINETTE KINCAID APRN T 309.81 AN PTSD 04/26/2010 NAGELICA BOARDER MACHINE, DALTON S 296.90 MO MOOD DIS NOS 04/26/2010 ANGELICA PRINCEN, DALTON S 309.81 AN PTSD 04/26/2010 CHARISMA GRACE MD 296.90 MO MOOD DIS NOS 04/26/2010 CHARISMA GRACE MD 309.81 AN PTSD 04/26/2010 ANTOINETTE KINCAID APRN T 296.90 MO MOOD DIS NOS 04/26/2010 ANTOINETTE KINCAID APRN T 309.81 AN PTSD 04/26/2010 ANTOINETTE KINCAID APRN T 296.90 MO MOOD DIS NOS 04/26/2010 ANTOINETTE KINCAID APRN T 309.81 AN PTSD 04/26/2010 MALONEY DO, VARGHESE K 296.90 MO MOOD DIS NOS 04/26/2010 MALONEY DO, VARGHESE K 309.81 AN PTSD 04/26/2010 ROSE CHEN MDY N 296.90 MO MOOD DIS NOS 04/26/2010 ROSE CHEN MD N 309.81 AN PTSD 04/26/2010 MALONEY DO, VARGHESE K 296.90 MO MOOD DIS NOS 04/26/2010 MALONEY DO, VARGHESE K 309.81 AN PTSD 04/26/2010 MALONEY DO, VARGHESE K 296.90 MO MOOD DIS NOS 04/26/2010 MALONEY DO, VARGHESE K 309.81 AN PTSD 04/26/2010 MADL BOARDER MACHINE, CRYSTAL L 296.90 MO MOOD DIS NOS 04/26/2010 MADL BOARDER MACHINE, CRYSTAL L 309.81 AN PTSD 05/08/2010 ANTOINETTE KINCAID APRN V25.09 Contraceptive Counseling 05/08/2010 ANTOINETTE KINCAID APRN V65.9 CONSULT FOR VASECTOMY 05/08/2010 ANTOINETTE KINCAID APRN V25.09 Contraceptive Counseling 05/08/2010 ANTOINETTE KINCAID APRN V65.9 CONSULT FOR VASECTOMY 05/08/2010 MALONEY DO, VARGHESE K V25.09 Contraceptive Counseling 05/08/2010 MALONEY DO, VARGHESE K V65.9 CONSULT FOR VASECTOMY 05/08/2010 V25.09 Contraceptive Counseling 05/08/2010 V65.9 CONSULT FOR VASECTOMY 05/08/2010 V25.09 Contraceptive Counseling 05/08/2010 V65.9 CONSULT FOR VASECTOMY 05/08/2010 V25.09 Contraceptive Counseling 05/08/2010 V65.9 CONSULT FOR VASECTOMY 05/08/2010 V25.09 Contraceptive Counseling 05/08/2010 V65.9 CONSULT FOR VASECTOMY 05/08/2010 ANTOINETTE KINCAID APRN V25.09 Contraceptive Counseling 05/08/2010 ANTOINETTE KINCAID APRN V65.9 CONSULT FOR VASECTOMY 05/08/2010 DALTON DOMINGUEZ APRN S V25.09 Contraceptive Counseling 05/08/2010 ANGELICA VERONICA DALTON S V65.9 CONSULT FOR VASECTOMY 05/08/2010 CHARISMA GRACE MD V25.09 Contraceptive Counseling 05/08/2010 CHARISMA GRACE MD V65.9 CONSULT FOR VASECTOMY 05/08/2010 ANTOINETTE KINCAID APRN V25.09 Contraceptive Counseling 05/08/2010 ANTOINETTE KINCAID APRN V65.9 CONSULT FOR VASECTOMY 05/08/2010 ANTOINETTE KINCAID APRN V25.09 Contraceptive Counseling 05/08/2010 ANTOINETTE KINCAID APRN V65.9 CONSULT FOR VASECTOMY 05/08/2010 MALONEY DO VARGHESE K V25.09 Contraceptive Counseling 05/08/2010 HAIDER MARTINO VARGHESE K V65.9 CONSULT FOR VASECTOMY 05/08/2010 ROSE CHEN MD N V25.09 Contraceptive Counseling 05/08/2010 ROSE CHEN MD N V65.9 CONSULT FOR VASECTOMY 05/08/2010 MALONEY DO VARGHESE K V25.09 Contraceptive Counseling 05/08/2010 MALONEY DO VARGHESE K V65.9 CONSULT FOR VASECTOMY 05/08/2010 MALONEY DO VARGHESE K V25.09 Contraceptive Counseling 05/08/2010 MALONEY DO VARGHESE K V65.9 CONSULT FOR VASECTOMY 05/08/2010 SHREYA LEARY APRNA L V25.09 Contraceptive Counseling 05/08/2010 JEANA LEARY APRNNYA L V65.9 CONSULT FOR VASECTOMY 06/06/2010 ANTOINETTE KINCAID APRN 525.9 UNSPECIFIED DISORDER OF THE TEETH AND SUPPORTING STRUCTURES 06/06/2010 ANTOINETTE KINCAID APRN 525.9 UNSPECIFIED DISORDER OF THE TEETH AND SUPPORTING STRUCTURES 06/06/2010 VARGHESE MALONEY DO 525.9 UNSPECIFIED DISORDER OF THE TEETH AND SUPPORTING STRUCTURES 06/06/2010 525.9 UNSPECIFIED DISORDER OF THE TEETH AND SUPPORTING STRUCTURES 06/06/2010 525.9 UNSPECIFIED DISORDER OF THE TEETH AND SUPPORTING STRUCTURES 06/06/2010 525.9 UNSPECIFIED DISORDER OF THE TEETH AND SUPPORTING STRUCTURES 06/06/2010 525.9 UNSPECIFIED DISORDER OF THE TEETH AND SUPPORTING STRUCTURES 06/06/2010 ANTOINETTE KINCAID APRN 525.9 UNSPECIFIED DISORDER OF THE TEETH AND SUPPORTING STRUCTURES 06/06/2010 DALTON DOMINGUEZ APRN 525.9 UNSPECIFIED DISORDER OF THE TEETH AND SUPPORTING STRUCTURES 06/06/2010 CHARISMA GRACE MD 525.9 UNSPECIFIED DISORDER OF THE TEETH AND SUPPORTING STRUCTURES 06/06/2010 ANTOINETTE KINCAID APRN 525.9 UNSPECIFIED DISORDER OF THE TEETH AND SUPPORTING STRUCTURES 06/06/2010 ANTOINETTE KINCAID APRN 525.9 UNSPECIFIED DISORDER OF THE TEETH AND SUPPORTING STRUCTURES 06/06/2010 VARGHESE MALONEY DO 525.9 UNSPECIFIED DISORDER OF THE TEETH AND SUPPORTING STRUCTURES 06/06/2010 ROSE CHEN MD 525.9 UNSPECIFIED DISORDER OF THE TEETH AND SUPPORTING STRUCTURES 06/06/2010 VARGHESE MALONEY DO K 525.9 UNSPECIFIED DISORDER OF THE TEETH AND SUPPORTING STRUCTURES 06/06/2010 VARGHESE MALONEY DO 525.9 UNSPECIFIED DISORDER OF THE TEETH AND SUPPORTING STRUCTURES 06/06/2010 CRYSTAL LEARY APRN 525.9 UNSPECIFIED DISORDER OF THE TEETH AND SUPPORTING STRUCTURES 09/24/2010 ANTOINETTE KINCAID APRN 465.9 UPPER RESPIRATORY INFECTION 09/24/2010 ANTOINETTE KINCAID APRN 466.0 BRONCHITIS, ACUTE 09/24/2010 ANTOINETTE KINCAID APRN 799.81 DECREASED LIBIDO 09/24/2010 ANTOINETTE KINCAID APRN 465.9 UPPER RESPIRATORY INFECTION 09/24/2010 ANTOINETTE KINCAID APRN 466.0 BRONCHITIS, ACUTE 09/24/2010 ANTOINETTE KINCAID APRN 799.81 DECREASED LIBIDO 09/24/2010 VARGHESE MALONEY DO K 465.9 UPPER RESPIRATORY INFECTION 09/24/2010 VARGHESE MALONEY DO K 466.0 BRONCHITIS, ACUTE 09/24/2010 TG MALONEY DOA K 799.81 DECREASED LIBIDO 09/24/2010 465.9 UPPER RESPIRATORY INFECTION 09/24/2010 466.0 BRONCHITIS, ACUTE 09/24/2010 799.81 DECREASED LIBIDO 09/24/2010 465.9 UPPER RESPIRATORY INFECTION 09/24/2010 466.0 BRONCHITIS, ACUTE 09/24/2010 799.81 DECREASED LIBIDO 09/24/2010 465.9 UPPER RESPIRATORY INFECTION 09/24/2010 466.0 BRONCHITIS, ACUTE 09/24/2010 799.81 Decreased Libido 09/24/2010 465.9 UPPER RESPIRATORY INFECTION 09/24/2010 466.0 BRONCHITIS, ACUTE 09/24/2010 799.81 Decreased Libido 09/24/2010 ANTOINETTE KINCAID APRN 465.9 UPPER RESPIRATORY INFECTION 09/24/2010 ANTOINETTE KINCAID APRN 466.0 BRONCHITIS, ACUTE 09/24/2010 ANTOINETTE KINCAID APRN 799.81 Decreased Libido 09/24/2010 ANGELICA VERONICA DALTON S 465.9 UPPER RESPIRATORY INFECTION 09/24/2010 ANGELICA VERONICA DALTON S 466.0 BRONCHITIS, ACUTE 09/24/2010 ANGELICA VERONICA DALTON S 799.81 Decreased Libido 09/24/2010 CHARISMA GRACE MD 465.9 UPPER RESPIRATORY INFECTION 09/24/2010 CHARISMA GRACE MD 466.0 BRONCHITIS, ACUTE 09/24/2010 CHARISMA GRACE MD 799.81 Decreased Libido 09/24/2010 ANTOINETTE KINCAID APRN 465.9 UPPER RESPIRATORY INFECTION 09/24/2010 ANTOINETTE KINCAID APRN 466.0 BRONCHITIS, ACUTE 09/24/2010 ANTOINETTE KINCAID APRN 799.81 Decreased Libido 09/24/2010 ANTOINETTE KINCAID APRN 465.9 UPPER RESPIRATORY INFECTION 09/24/2010 ANTOINETTE KINCAID APRN 466.0 BRONCHITIS, ACUTE 09/24/2010 ANTOINETTE KINCAID APRN 799.81 Decreased Libido 09/24/2010 MALONEY DO, VARGHESE K 465.9 UPPER RESPIRATORY INFECTION 09/24/2010 MALONEY DO, VARGHESE K 466.0 BRONCHITIS, ACUTE 09/24/2010 MALONEY DO, VARGHESE K 799.81 Decreased Libido 09/24/2010 ROSE CHEN MD 465.9 UPPER RESPIRATORY INFECTION 09/24/2010 ROSE CHEN MD 466.0 BRONCHITIS, ACUTE 09/24/2010 ROSE CHEN MD 799.81 Decreased Libido 09/24/2010 MALONEY DO, VARGHESE K 465.9 UPPER RESPIRATORY INFECTION 09/24/2010 MALONEY DO, VARGHESE K 466.0 BRONCHITIS, ACUTE 09/24/2010 MALONEY DO, VARGHESE K 799.81 Decreased Libido 09/24/2010 MALONEY DO, VARGHESE K 465.9 UPPER RESPIRATORY INFECTION 09/24/2010 MALONEY DO, VARGHESE K 466.0 BRONCHITIS, ACUTE 09/24/2010 MALONEY DO, VARGHESE K 799.81 Decreased Libido 09/24/2010 MADL BOARDER MACHINE, CRYSTAL L 465.9 UPPER RESPIRATORY INFECTION 09/24/2010 MADL BOARDER MACHINE, CRYSTAL L 466.0 BRONCHITIS, ACUTE 09/24/2010 MADL BOARDER MACHINE, CRYSTAL L 799.81 Decreased Libido 10/02/2010 ANTOINETTE KINCAID APRN 924.20 CONTUSION WITH INTACT SKIN SURFACE - FOOT 10/02/2010 ANTOINETTE KINCAID APRN E849.9 ACCIDENTS OCCURRING IN UNSPECIFIED PLACE 10/02/2010 ANTOINETTE KINCAID APRN 924.20 CONTUSION WITH INTACT SKIN SURFACE - FOOT 10/02/2010 ANTOINETTE KINCAID APRN E849.9 ACCIDENTS OCCURRING IN UNSPECIFIED PLACE 10/02/2010 MALONEY DO, VARGHESE K 924.20 CONTUSION WITH INTACT SKIN SURFACE - FOOT 10/02/2010 MALONEY DO, VARGHESE K E849.9 ACCIDENTS OCCURRING IN UNSPECIFIED PLACE 10/02/2010 924.20 CONTUSION WITH INTACT SKIN SURFACE - FOOT 10/02/2010 E849.9 ACCIDENTS OCCURRING IN UNSPECIFIED PLACE 10/02/2010 924.20 CONTUSION WITH INTACT SKIN SURFACE - FOOT 10/02/2010 E849.9 ACCIDENTS OCCURRING IN UNSPECIFIED PLACE 10/02/2010 924.20 CONTUSION WITH INTACT SKIN SURFACE - FOOT 10/02/2010 E849.9 ACCIDENTS OCCURRING IN UNSPECIFIED PLACE 10/02/2010 924.20 CONTUSION WITH INTACT SKIN SURFACE - FOOT 10/02/2010 E849.9 ACCIDENTS OCCURRING IN UNSPECIFIED PLACE 10/02/2010 ANTOINETTE KINCAID APRN 924.20 CONTUSION WITH INTACT SKIN SURFACE - FOOT 10/02/2010 ANTOINETTE KINCAID APRN E849.9 ACCIDENTS OCCURRING IN UNSPECIFIED PLACE 10/02/2010 ANGELICA BOARDER MACHINE, DALTON S 924.20 CONTUSION WITH INTACT SKIN SURFACE - FOOT 10/02/2010 DALTON DOMINGUEZ APRN E849.9 ACCIDENTS OCCURRING IN UNSPECIFIED PLACE 10/02/2010 CHARISMA GRACE MD 924.20 CONTUSION WITH INTACT SKIN SURFACE - FOOT 10/02/2010 CHARISMA GRACE MD E849.9 ACCIDENTS OCCURRING IN UNSPECIFIED PLACE 10/02/2010 ANTOINETTE KINCAID APRN 924.20 CONTUSION WITH INTACT SKIN SURFACE - FOOT 10/02/2010 ANTOINETTE KINCAID APRN E849.9 ACCIDENTS OCCURRING IN UNSPECIFIED PLACE 10/02/2010 ANTOINETTE KINCAID APRN 924.20 CONTUSION WITH INTACT SKIN SURFACE - FOOT 10/02/2010 ANTOINETTE KINCAID APRN E849.9 ACCIDENTS OCCURRING IN UNSPECIFIED PLACE 10/02/2010 VARGHESE MALONEY DO K 924.20 CONTUSION WITH INTACT SKIN SURFACE - FOOT 10/02/2010 TG MALONEY DOA K E849.9 ACCIDENTS OCCURRING IN UNSPECIFIED PLACE 10/02/2010 ROSE CHEN MD 924.20 CONTUSION WITH INTACT SKIN SURFACE - FOOT 10/02/2010 ROSE CHEN MD N E849.9 ACCIDENTS OCCURRING IN UNSPECIFIED PLACE 10/02/2010 MALONEY DOTGA K 924.20 CONTUSION WITH INTACT SKIN SURFACE - FOOT 10/02/2010 TG MALONEY DOA K E849.9 ACCIDENTS OCCURRING IN UNSPECIFIED PLACE 10/02/2010 MALONEY DOTGA K 924.20 CONTUSION WITH INTACT SKIN SURFACE - FOOT 10/02/2010 TG MALONEY DOA K E849.9 ACCIDENTS OCCURRING IN UNSPECIFIED PLACE 10/02/2010 CRYSTAL LEARY APRN 924.20 CONTUSION WITH INTACT SKIN SURFACE - FOOT 10/02/2010 CRYSTAL LEARY APRN L E849.9 ACCIDENTS OCCURRING IN UNSPECIFIED PLACE 10/10/2010 ANTOINETTE KINCAID APRN 077.99 UNSPECIFIED DISEASES OF CONJUNCTIVA DUE TO VIRUSES 10/10/2010 ANTOINETTE KINCAID APRN 077.99 UNSPECIFIED DISEASES OF CONJUNCTIVA DUE TO VIRUSES 10/10/2010 VARGHESE MALONEY DO 077.99 UNSPECIFIED DISEASES OF CONJUNCTIVA DUE TO VIRUSES 10/10/2010 077.99 UNSPECIFIED DISEASES OF CONJUNCTIVA DUE TO VIRUSES 10/10/2010 077.99 UNSPECIFIED DISEASES OF CONJUNCTIVA DUE TO VIRUSES 10/10/2010 077.99 UNSPECIFIED DISEASES OF CONJUNCTIVA DUE TO VIRUSES 10/10/2010 077.99 UNSPECIFIED DISEASES OF CONJUNCTIVA DUE TO VIRUSES 10/10/2010 ANTOINETTE KINCAID APRN 077.99 UNSPECIFIED DISEASES OF CONJUNCTIVA DUE TO VIRUSES 10/10/2010 DALTON DOMINGUEZ APRN S 077.99 UNSPECIFIED DISEASES OF CONJUNCTIVA DUE TO VIRUSES 10/10/2010 CHARISMA GRACE MD 077.99 UNSPECIFIED DISEASES OF CONJUNCTIVA DUE TO VIRUSES 10/10/2010 ANTOINETTE KINCAID APRN 077.99 UNSPECIFIED DISEASES OF CONJUNCTIVA DUE TO VIRUSES 10/10/2010 ANTOINETTE KINCAID APRN 077.99 UNSPECIFIED DISEASES OF CONJUNCTIVA DUE TO VIRUSES 10/10/2010 MALONEY DO VARGHESE K 077.99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
== END 2017-06-19 14:06 | disposition left against medical advice (07) ==
LOC: EDUNIT# 13:02 → ER 13:05
DX: M79.89 Other specified soft tissue disorders (principal)